=== PATIENT | female | born 1955 | race Asian ===

== ENCOUNTER → 2016-08-09 | Outpatient (CLI) | payer MEDICAID ==
[~2016-08-09] MED LIST: ATOR20TA9 PO; CALC-570 PO; CHOL100018 PO; GLIP5TAB10 PO; LISI-170 PO; METF850T2 PO; ONDA8TAB9 PO; PROC10TA PO; SIMV10TA3 PO
== END | disposition home or self-care (01) ==
LOC: ROC 08:31
PROVIDERS: ATTEND Radiology Radiation Oncology
DX: C50.912 Malignant neoplasm of unspecified site of left female breast (principal); N95.9 Unspecified menopausal and perimenopausal disorder; Z92.3 Personal history of irradiation
CPT/HCPCS: 99212; G0463

== ENCOUNTER → 2016-09-24 | Outpatient (CLI) | payer MEDICAID | END | disposition home or self-care (01) | LOC: CFH 08:15 | PROVIDERS: ATTEND Internal Medicine Gastroenterology | DX: K82.4 Cholesterolosis of gallbladder (principal); K76.9 Liver disease, unspecified; R68.81 Early satiety | CPT/HCPCS: 76700 ==

== ENCOUNTER → 2017-01-09 | Outpatient (CLI) | payer MEDICAID ==
[~2017-01-09] MED LIST changes: +CHOL100012 PO; -CHOL100018 PO
== END | disposition home or self-care (01) ==
LOC: ROC 15:05
PROVIDERS: ATTEND Radiology Radiation Oncology
DX: C50.912 Malignant neoplasm of unspecified site of left female breast (principal)
CPT/HCPCS: 99212; G0463

== ENCOUNTER → 2017-07-10 | Outpatient (CLI) | payer MEDICARE, MEDICAID | END | disposition home or self-care (01) | LOC: CFH 10:51 | PROVIDERS: ATTEND Specialist | DX: Z12.31 Encounter for screening mammogram for malignant neoplasm of breast (principal) | CPT/HCPCS: 77063; 77067 ==

== ENCOUNTER → 2017-07-16 | Outpatient (CLI) | payer MEDICARE, MEDICAID | END | disposition home or self-care (01) | LOC: ROC 07:31 | PROVIDERS: ATTEND Radiology Radiation Oncology | DX: Z08 Encounter for follow-up examination after completed treatment for malignant neoplasm (principal); C50.912 Malignant neoplasm of unspecified site of left female breast; Z79.811 Long term (current) use of aromatase inhibitors; Z79.84 Long term (current) use of oral hypoglycemic drugs | CPT/HCPCS: G0463 ==

== ENCOUNTER → 2018-01-16 | Outpatient (CLI) | payer MEDICARE, MEDICAID ==
[~2018-01-16] MED LIST changes: +METF850T10 PO; -METF850T2 PO; -PROC10TA PO; +PROC10TA2 PO
== END | disposition home or self-care (01) ==
LOC: ROC 08:09
PROVIDERS: ATTEND Radiology Radiation Oncology
DX: C50.412 Malignant neoplasm of upper-outer quadrant of left female breast (principal); Z91.040 Latex allergy status
CPT/HCPCS: G0463

== ENCOUNTER → 2018-05-13 | Outpatient (CLI) | payer MEDICARE, MEDICAID ==
[~2018-05-13] MED LIST changes: +ATOR20TA37 PO; -ATOR20TA9 PO
== END | disposition home or self-care (01) ==
LOC: CFH 07:37
PROVIDERS: ATTEND Family Medicine
DX: K82.4 Cholesterolosis of gallbladder (principal)
CPT/HCPCS: 76705; 77080

== ENCOUNTER 2018-07-13 13:35 | Outpatient (CLI) | payer MEDICARE, MEDICAID | END 2018-07-13 23:59 | disposition home or self-care (01) | LOC: CFH 13:35 | PROVIDERS: ATTEND Specialist | DX: Z12.31 Encounter for screening mammogram for malignant neoplasm of breast (principal); Z85.3 Personal history of malignant neoplasm of breast; Z92.3 Personal history of irradiation | CPT/HCPCS: 77063; 77067 ==

== ENCOUNTER → 2018-07-16 | Outpatient (CLI) | payer MEDICARE, MEDICAID | END | disposition home or self-care (01) | LOC: ROC 07:19 | PROVIDERS: ATTEND Radiology Radiation Oncology | DX: Z08 Encounter for follow-up examination after completed treatment for malignant neoplasm (principal); Z78.0 Asymptomatic menopausal state; Z85.3 Personal history of malignant neoplasm of breast; Z91.040 Latex allergy status | CPT/HCPCS: G0463 ==

== ENCOUNTER 2019-04-23 16:58 | Emergency (ER) | payer MEDICARE, MEDICAID ==
[~2019-04-23] VITALS: Ht 152.4 cm; Wt 59.4 kg
[2019-04-23] MEDS ORDERED: METO25TA35 PO (17:16)
[2019-04-23] MEDS ORDERED: LOSA50TA14 PO (17:16)
[2019-04-23] MEDS ORDERED: LETR2.5T PO (17:16)
[2019-04-23] MEDS ORDERED: FLUORESCEIN OPHTHALMIC 1 MG STRIP ONE (17:34)
[2019-04-23] MEDS ORDERED: PROPARACAINE OPHTH 0.5%, 15ML ONE (17:34)
--- NOTE | 2019-04-23 17:36 | NUR ---
PT AMBULATORY TO ROOM 22 W/ C/O R EYE SWELLING AND REDNESS STARTED 2-3 DAYS AGO WORSENED THIS AM. PT STATES SHE HAD CATARACT SURGERY [address] NAVARRETE[address] PT NOTED TO HAVE HTN IN TRIAGE. REMAINS HIGH IN ROOM. DENIES SAUL. PT RESTING ON GURNEY. NADN. MONITORS IN PLACE. REFUSED BLANKET AT THIS TIME.
--- NOTE | 2019-04-23 18:09 | NUR ---
REPORT GIVEN TO YISSEL GOODWIN.
[2019-04-23] MEDS ORDERED: CEPHALEXIN 500 MG CAPSULE ONE (18:21)
[2019-04-23] MEDS ORDERED: METOPROLOL TARTRATE 25 MG TABLET ONE (18:21)
--- NOTE | 2019-04-23 18:24 | NUR ---
PT MEDICATED PER [facility]. PHARMACY SENT REQUEST FOR MED. PT SITTING ON CHAIR. NADN. PRATER.
[2019-04-23] MEDS ORDERED: LOSARTAN 25MG TABLET PO ONE (18:30)
[2019-04-23] MEDS ORDERED: LOSARTAN 50MG TABLET PO ONE (18:30)
[2019-04-23] MEDS ORDERED: CEPHALEXIN 500 MG CAPSULE PO ONE (18:30)
[2019-04-23] MEDS ORDERED: METOPROLOL TARTRATE 25 MG TABLET PO ONE (18:30)
--- NOTE | 2019-04-23 18:37 | NUR ---
REST OF MEDICATIONS HAVE BEEN GIVEN TO PT. PT SITTING ON CHAIR. NADN. VSS. DENIES NEEDS.
--- NOTE | 2019-04-23 18:53 | NUR ---
BEDSIDE REPORT FROM YISSEL GOODWIN
[2019-04-23 19:03] VITALS: BP 166/102
== END 2019-04-23 19:40 | disposition home or self-care (01) ==
LOC: ED 18:47
DX: H01.00A Unspecified blepharitis right eye, upper and lower eyelids (principal); L21.9 Seborrheic dermatitis, unspecified; E11.9 Type 2 diabetes mellitus without complications; E78.5 Hyperlipidemia, unspecified; I10 Essential (primary) hypertension
CPT/HCPCS: 99284